=== PATIENT | male | born 1960 | race Caucasian/White ===

== ENCOUNTER 2019-06-21 09:40 | Emergency (ER) | payer OTHER, MEDICAID, SELFPAY ==
[2019-06-21 09:40] VITALS: BP 100/76; PULSE 90; RESP 16; TEMP 36.3; O2SAT 93
[2019-06-21 10:03] VITALS: BP 92/70; PULSE 84; RESP 14; O2SAT 96
--- NOTE | 2019-06-21 10:19 | ED.GENADULT ---
HPI - General Adult General Chief complaint: Toxicology Problem Stated complaint: ETOH ground level fall Time Seen by Provider: 06/21/19 09:58 Source: EMS Mode of arrival: EMS Limitations: altered mental status History of Present Illness HPI narrative: 58-year-old male brought in by EMS after he was brought off the [place] for reported ground level fall and altered mental status. Patient does admit that he has been drinking. [place] states [place] ?a [place] of booze ?he states that he did not fall. EMS did not witness any falls however they were told that he did stumble to the ground. Were told that he did not hit his head and there was no loss of consciousness. Patient reports no pain. Related Data Home Medications Medication Instructions Recorded Confirmed No Known Home Medications 06/21/19 06/21/19 Allergies Allergy/AdvReac Type Severity Reaction Status Date / Time No Known Drug Allergies Allergy Verified 06/21/19 09:59 Review of Systems Constitutional Constitutional: Denies frequent falls, Denies headache(s) and Denies weakness Eyes Eyes: Denies change in vision ENT Ears, Nose, Mouth, and Throat: Denies dizziness, Denies headache(s) and Denies disequilibrium Cardiovascular Cardiovascular: Denies chest pain and Denies dyspnea Respiratory Respiratory: Denies dyspnea Gastrointestinal Gastrointestinal: Denies abdominal pain Musculoskeletal Musculoskeletal: Denies back pain, Denies myalgias and Denies arthralgias Integumentary/Breasts Skin/Breast: Denies lesions and Denies rash Neurologic Neurologic: Denies dizziness, Denies frequent falls, Denies headache(s), Denies disequilibrium and Denies weakness Hematologic/Lymphatic Hematologic/Lymphatic: Denies easy bleeding and Denies easy bruising [facility] Medical History Patient denies medical problems (Acute) Social History Smoking Status: Former smoker Social History Smoking Status: Former smoker Exam Initial Vital Signs Initial Vital Signs: Vital Signs Temperature 97.3 F L 06/21/19 09:40 Pulse Rate 90 06/21/19 09:40 Respiratory Rate 16 06/21/19 09:40 Blood Pressure 100/76 06/21/19 09:40 Pulse Oximetry 93 06/21/19 09:40 Const General: cooperative, well groomed and No acute distress Orientation: alert, awake, oriented to person and oriented to time Other: Patient thinks that he is in [place] not [place] but does know the year, knows his name, knows his date, knows the president, states that he did fall sleep on the boat and drink some alcohol HENMT Head: normal to inspection, normocephalic and atraumatic Resp Effort & Inspection: normal respiratory effort Auscultation: clear to auscultation bilaterally Cardio Rate: regular rate Rhythm: regular rhythm GI Inspection: non-distended Palpation: soft Skin Lesions: no lesions Rashes: no rashes Neuro General: alert and awake Speech: other (Slurring his speech) Motor: muscle tone normal throughout Sensory Exam: no sensory deficits noted Extrem General: normal to inspection and capillary refill normal Psych Appearance: grossly normal and well kempt Course Vital Signs Vital signs: Vital Signs - 8 hr 06/21/19 09:40 06/21/19 10:03 06/21/19 10:42 Temperature 97.3 F L Pulse Rate 90 84 85 Respiratory Rate 16 14 12 Blood Pressure 100/76 Blood Pressure [Left Arm] 92/70 98/74 Pulse Oximetry 93 96 98 06/21/19 11:15 Temperature Pulse Rate 86 Respiratory Rate 12 Blood Pressure Blood Pressure [Left Arm] 99/73 Pulse Oximetry 99 Medical Decision Making MDM Narrative Medical decision making narrative: After observation in the emergency department patient became alert and oriented x3. He ambulated around the ER without problems. He did admit to having drinks last evening. He states that he slipped on the [place] last evening. He has no complaints currently. He is clinically sober. Has no complaints of pain. No signs of trauma on his exam. I did inform the patient that he should not drive for the next 24 hours or in the future if he partake in intoxicating substances. He was instructed to follow up with his primary provider. He expressed understanding and agreement with plan. Discharge Plan Departure Patient Disposition: Home Clinical Impression: Alcoholic intoxication Qualifiers: Complication of substance-induced condition: uncomplicated Qualified Code(s): F10.920 - Alcohol use, unspecified with intoxication, uncomplicated Instructions: Alcohol Use Disorder Activity Restrictions/Additional Instructions: No driving for the next 24 hours or in the future if you partake in intoxicating substances. Recommend you contact her primary provider for follow-up. Return to the emergency department for any new or worsening symptoms Prescriptions: No Action No Known Home Medications RF: 0
[2019-06-21 10:42] VITALS: BP 98/74; PULSE 85; RESP 12; O2SAT 98
--- NOTE | 2019-06-21 11:06 | PC.NURSE ---
1000 pt remembers getting off work last night and starting to drink around 2330.
[2019-06-21 11:15] VITALS: BP 99/73; PULSE 86; RESP 12; O2SAT 99
--- NOTE | 2019-06-21 11:57 | PC.NURSE ---
1157 Pt's O2 dropped to 76 with a good pleth. Went into the room and asked pt to take a few deep breaths. I then put the o2 cannula back on the pt. RN aware
[2019-06-21 14:17] VITALS: BP 100/84; PULSE 84; RESP 15; O2SAT 96
== END 2019-06-21 15:00 | disposition home or self-care (01) ==
PROVIDERS: Emergency Provider Emergency Medicine
DX: F10.920 Alcohol use, unspecified with intoxication, uncomplicated (principal); W18.30XA Fall on same level, unspecified, initial encounter
CPT/HCPCS: 99282; 99283